=== PATIENT | male | born 1940 | race African-American/Black ===

== ENCOUNTER 2017-10-13 10:15 | Outpatient (RCR) | payer OTHER ==
[~2017-10-13 10:15] MED LIST: NORVASC5 MG ORAL
== END 2017-10-19 | disposition home or self-care (01) ==
LOC: PTY 10:15
DX: M54.6 Pain in thoracic spine (principal); G89.29 Other chronic pain

== ENCOUNTER 2017-10-23 10:03 | Outpatient (RCR) | payer OTHER | END 2017-11-18 | disposition home or self-care (01) | LOC: PTY 10:03 | DX: M54.6 Pain in thoracic spine (principal); G89.29 Other chronic pain ==